=== PATIENT | female | born 1995 | race Two or more races ===

== ENCOUNTER 2024-06-02 21:36 | Emergency (ER) | payer SELFPAY ==
[~2024-06-02] VITALS: Ht 160 cm; Wt 65.8 kg
[2024-06-02] MEDS ORDERED: HYDROCODONE/APAP 5/325MG TABLET ONE (22:44)
[2024-06-02] MEDS: HYDROCODONE/APAP 5/325MG TABLET PO ONE (22:45)
[2024-06-03 01:15] VITALS: BP 103/67; TEMP 98.2; O2SAT 98
== END 2024-06-03 01:15 | disposition home or self-care (01) ==
LOC: ER 21:40
DX: S13.4XXA Sprain of ligaments of cervical spine, initial encounter (principal); S60.222A Contusion of left hand, initial encounter; S50.11XA Contusion of right forearm, initial encounter; V47.5XXA Car driver injured in collision with fixed or stationary object in traffic accident, initial encounter; Y93.89 Activity, other specified; Y92.488 Other paved roadways as the place of occurrence of the external cause; Y99.8 Other external cause status
CPT/HCPCS: 72125-TC; 73090-TC; 73130-TC